=== PATIENT | male | born 1975 | race African-American/Black ===

== ENCOUNTER 2018-11-19 17:40 | Inpatient (IN) | payer SELFPAY ==
[~2018-11-19] VITALS: Ht 172.7 cm; Wt 146.3 kg
[2018-11-19 18:44] LABS: BASOPHILS % 0.6 % (0.0-2.0); HEMATOCRIT. 42.4 % (42.0-52.0); HEMOGLOBIN. 13.3 g/dL (14.0-18.0); LYMPHOCYTES % 11.4 % (20.0-50.0); MEAN PLATELET VOLUME 9.3 fl (7.4-10.4); MONOCYTES % 6.7 % (2.0-8.0); NEUTROPHILS % 78.3 % (40.0-76.0); PLATELET 207 x1000/uL (130-400); RED BLOOD CELL COUNT 4.93 mill/uL (4.7-6.1); RED CELL DISTRIBUTION WIDTH 14.3 % (11.6-14.6)
[2018-11-19 18:51] LABS: CHLORIDE 107 mEq/L (98-107)
[2018-11-19 18:53] LABS: PARTIAL THROMBOPLASTIN TIME 29.3 sec (23.4-31.0)
[2018-11-19 18:58] LABS: ETHANOL BLOOD < 10 mg/dL
[2018-11-19] MEDS ORDERED: IPRATROPIUM BROMIDE (0.02%) 0.5MG/2.5ML NEB HHN STA (19:53)
[2018-11-19] MEDS ORDERED: ALBUTEROL (0.083%) 2.5MG/3ML NEB HHN STA (19:53)
[2018-11-19] MEDS ORDERED: CLONIDINE 0.1MG TABLET PO ONE (20:00)
[2018-11-19] MEDS ORDERED: KETOROLAC 30MG/ML VIAL IV ONE (20:00)
[2018-11-19] MEDS ORDERED: HYDROCODONE/ACETAMINOPHEN 5/325MG TABLET PO ONE (20:00)
[2018-11-20] MEDS ORDERED: ACETAMINOPHEN 325MG TABLET PO PRN (01:00)
[2018-11-20] MEDS ORDERED: MAGNESIUM/ALUMINUM HYDROXIDE/SIMETHICONE 30ML UDC PO PRN (01:00)
[2018-11-20] MEDS ORDERED: ONDANSETRON HCL 4MG/2ML INJ IV PRN (01:00)
[2018-11-20] MEDS ORDERED: IPRATROPIUM/ALBUTEROL 0.5-3(2.5)MG/3ML NEB INH PRN (01:00)
[2018-11-20] MEDS ORDERED: CLONIDINE 0.1MG TABLET PO PRN (01:00)
[2018-11-20] MEDS ORDERED: HYDRALAZINE 20MG/ML VIAL IV PRN (01:00)
[2018-11-20] MEDS ORDERED: DIPHENHYDRAMINE 50MG/ML VIAL IV PRN (01:00)
[2018-11-20] MEDS ORDERED: HYDROCODONE/ACETAMINOPHEN 5/325MG TABLET PO PRN ×2 (01:00→14:45)
[2018-11-20] MEDS ORDERED: GUAIFENESIN 200MG/10ML SUGAR FREE UDC PO PRN (01:00)
[2018-11-20 01:53] VITALS: BP 144/84
[2018-11-20] MEDS: KETOROLAC 30MG/ML VIAL IV PRN ×2 (03:04→21:17)
[2018-11-20 04:00] VITALS: BP 193/108
[2018-11-20] MEDS: IPRATROPIUM/ALBUTEROL 0.5-3(2.5)MG/3ML NEB HHN SCH ×3 (04:51→19:54)
[2018-11-20] MEDS: IBUPROFEN 600MG TABLET PO PRN (05:16)
[2018-11-20] MEDS: SODIUM CHLORIDE 0.9% INJ 3ML FLUSH IVF SCH ×2 (05:16→21:19)
[2018-11-20] MEDS: HYDRALAZINE HCL 50MG TABLET PO SCH ×3 (05:16→21:18)
[2018-11-20] MEDS ORDERED: HYDRALAZINE HCL 50MG TABLET PO SCH (06:00)
[2018-11-20] MEDS ORDERED: FUROSEMIDE 40MG/4ML VIAL IVP SCH (09:00)
[2018-11-20] MEDS ORDERED: FAMOTIDINE 20MG/2ML VIAL IV SCH (09:00)
[2018-11-20] MEDS: METOLAZONE 5MG TABLET PO SCH (09:49)
[2018-11-20] MEDS: FUROSEMIDE 40MG/4ML VIAL IVP SCH ×2 (09:50→21:16)
[2018-11-20] MEDS: POTASSIUM CHLORIDE 20MEQ TABLET SR PO SCH (09:50)
[2018-11-20] MEDS: ENOXAPARIN 40MG/0.4ML SYR SUBCUT SCH ×2 (09:51→21:19)
[2018-11-20 12:00] VITALS: BP 167/85
[2018-11-20 16:00] VITALS: BP 147/80
[2018-11-20 20:00] VITALS: BP 166/95
[2018-11-20] MEDS: AMLODIPINE 5MG TABLET PO SCH (21:18)
[2018-11-20] MEDS: FAMOTIDINE 20MG TABLET PO SCH (21:18)
[2018-11-21] VITALS (7 sets, daily range): BP systolic 138–163; BP diastolic 66–98
[2018-11-21] MEDS: IPRATROPIUM/ALBUTEROL 0.5-3(2.5)MG/3ML NEB HHN SCH ×2 (04:52→13:35)
[2018-11-21] MEDS: HYDRALAZINE HCL 50MG TABLET PO SCH ×3 (05:07→21:09)
[2018-11-21] MEDS: SODIUM CHLORIDE 0.9% INJ 3ML FLUSH IVF SCH ×3 (05:08→21:09)
[2018-11-21 07:30] LABS: CHLORIDE 100 mEq/L (98-107)
[2018-11-21] MEDS: AMLODIPINE 5MG TABLET PO SCH ×2 (08:49→21:09)
[2018-11-21] MEDS: METOLAZONE 5MG TABLET PO SCH (08:49)
[2018-11-21] MEDS: POTASSIUM CHLORIDE 20MEQ TABLET SR PO SCH (08:49)
[2018-11-21] MEDS: ENOXAPARIN 40MG/0.4ML SYR SUBCUT SCH ×2 (08:50→21:10)
[2018-11-21] MEDS: FUROSEMIDE 40MG/4ML VIAL IVP SCH ×2 (08:50→21:08)
[2018-11-21] MEDS: IBUPROFEN 600MG TABLET PO PRN (15:09)
[2018-11-21] MEDS: FAMOTIDINE 20MG TABLET PO SCH (21:08)
[2018-11-21] MEDS: METOPROLOL TARTRATE 50MG TABLET PO SCH (21:27)
[2018-11-22] VITALS: BP 162/96
[2018-11-22 01:52] LABS: *AMPHETAMINES SCREEN URINE NEGATIVE (NEGATIVE); *BARBITURATES SCREEN URINE NEGATIVE (NEGATIVE); *BENZODIAZEPINES SCREEN URINE NEGATIVE (NEGATIVE); *COCAINE SCREEN URINE NEGATIVE (NEGATIVE); CANNABINOID URINE SCREEN NEGATIVE (NEGATIVE); METHADONE URINE SCREEN NEGATIVE (NEGATIVE); OPIATES URINE SCREEN NEGATIVE (NEGATIVE); PHENCYCLIDINE URINE SCREEN NEGATIVE (NEGATIVE)
[2018-11-22 04:20] VITALS: BP 117/49
[2018-11-22] MEDS: SODIUM CHLORIDE 0.9% INJ 3ML FLUSH IVF SCH ×2 (05:14→14:00)
[2018-11-22] MEDS: HYDRALAZINE HCL 50MG TABLET PO SCH ×2 (05:14→14:00)
[2018-11-22 06:14] LABS: CHLORIDE 95 mEq/L (98-107)
[2018-11-22 06:35] LABS: BASOPHILS % 0.5 % (0.0-2.0); EOSINOPHILS % 4.6 % (0.0-5.0); HEMATOCRIT. 46.6 % (42.0-52.0); LYMPHOCYTES % 11.6 % (20.0-50.0); MEAN CORPUSCULAR HEMOGLOBIN 28.1 pg (28.0-32.0); MEAN CORPUSCULAR VOLUME 86.9 fL (80.0-94.0); MEAN PLATELET VOLUME 9.6 fl (7.4-10.4); MONOCYTES % 9.2 % (2.0-8.0); NEUTROPHILS % 74.1 % (40.0-76.0); PLATELET 284 x1000/uL (130-400); RED BLOOD CELL COUNT 5.36 mill/uL (4.7-6.1); RED CELL DISTRIBUTION WIDTH 14.3 % (11.6-14.6)
[2018-11-22 08:00] VITALS: BP 136/73
[2018-11-22] MEDS: FUROSEMIDE 40MG/4ML VIAL IVP SCH (08:47)
[2018-11-22 08:56] VITALS: BP 101/47
[2018-11-22] MEDS: METOPROLOL TARTRATE 50MG TABLET PO SCH (09:36)
[2018-11-22] MEDS: AMLODIPINE 5MG TABLET PO SCH (09:36)
[2018-11-22] MEDS: POTASSIUM CHLORIDE 20MEQ TABLET SR PO SCH (09:37)
[2018-11-22] MEDS: ENOXAPARIN 40MG/0.4ML SYR SUBCUT SCH (09:37)
[2018-11-22 12:04] VITALS: BP 103/59
[2018-11-22 16:18] VITALS: BP 125/74
== END 2018-11-22 19:45 | disposition home or self-care (01) | DRG 194 ==
LOC: ER 17:40 → 6WST 22:35 → EDBEDREQ 22:39 → EDBEDREQTM 22:39 → CANRESERV 22:56 → ENRESERV 22:56
PROVIDERS: ADMIT Internal Medicine; ATTEND Internal Medicine
DX: I11.0 Hypertensive heart disease with heart failure (principal); E66.2 Morbid (severe) obesity with alveolar hypoventilation; I50.43 Acute on chronic combined systolic (congestive) and diastolic (congestive) heart failure; I47.1 Supraventricular tachycardia; Z60.2 Problems related to living alone; J45.909 Unspecified asthma, uncomplicated; S39.012A Strain of muscle, fascia and tendon of lower back, initial encounter; Z79.899 Other long term (current) drug therapy; Z68.42 Body mass index [BMI] 45.0-49.9, adult
CPT/HCPCS: 36415; 71045; 80048; 80305; 80320; 83735; 83880; 84484; 93005; 93306; 93970; 94640; 96374; 97161; 99285; J0360; J1650; J1885; J1940; J7611; J7620; G0480

== ENCOUNTER 2021-08-12 00:20 | Inpatient (IN) | payer MEDICAID ==
[~2021-08-12] VITALS: Ht 172.7 cm; Wt 131.1 kg
[~2021-08-12 00:20] MED LIST: ALBU6.7H9 ORI; AMLO10TA80 PO; HYDR100T26 MT; LOSA100T32 MT
[2021-08-12] MEDS ORDERED: NITROGLYCERIN 0.4MG TABLET SL SL PRN (03:15)
[2021-08-12] MEDS ORDERED: ASPIRIN 81MG TABLET PO ONE (03:15)
[2021-08-12] MEDS ORDERED: LABETALOL HCL VIAL 20 MG/4 ML VIAL IV ONE ×2 (03:15→04:45)
[2021-08-12 03:32] LABS: EOSINOPHILS % 2.5 % (0.0-5.0); HEMATOCRIT. 42.5 % (42.0-52.0); HEMOGLOBIN. 13.4 g/dL (14.0-18.0); LYMPHOCYTES % 13.1 % (20.0-50.0); MEAN CORPUSCULAR VOLUME 85.9 fL (80.0-94.0); MEAN PLATELET VOLUME 9.7 fl (7.4-10.4); MONOCYTES % 7.4 % (2.0-8.0); PLATELET 210 x1000/uL (130-400); RED BLOOD CELL COUNT 4.95 mill/uL (4.7-6.1); RED CELL DISTRIBUTION WIDTH 14.9 % (11.6-14.6)
[2021-08-12 03:38] LABS: CHLORIDE 103 mEq/L (98-107)
[2021-08-12 09:00] VITALS: BP 160/81
[2021-08-12] MEDS ORDERED: ONDANSETRON HCL 4MG/2ML INJ IV PRN (11:00)
[2021-08-12] MEDS ORDERED: ACETAMINOPHEN 325MG TABLET PO PRN (11:00)
[2021-08-12] MEDS: AMLODIPINE 10MG TABLET PO SCH (11:43)
[2021-08-12 12:00] VITALS: BP 159/97
[2021-08-12] MEDS ORDERED: HYDR100T26 MT (15:18)
[2021-08-12] MEDS ORDERED: AMLO10TA80 PO (15:18)
[2021-08-12] MEDS ORDERED: LOSA100T32 MT (15:18)
[2021-08-12] MEDS ORDERED: HYDRALAZINE HCL 100MG TABLET PO NR (15:30)
[2021-08-12 16:00] VITALS: BP 138/79
[2021-08-12 16:18] LABS: *AMPHETAMINES SCREEN URINE NEGATIVE (NEGATIVE); *BARBITURATES SCREEN URINE NEGATIVE (NEGATIVE); *BENZODIAZEPINES SCREEN URINE NEGATIVE (NEGATIVE); *COCAINE SCREEN URINE NEGATIVE (NEGATIVE); CANNABINOID URINE SCREEN PRESUMTIVE POSITIVE (NEGATIVE); METHADONE URINE SCREEN NEGATIVE (NEGATIVE); OPIATES URINE SCREEN NEGATIVE (NEGATIVE); PHENCYCLIDINE URINE SCREEN NEGATIVE (NEGATIVE)
[2021-08-12] MEDS: LOSARTAN POTASSIUM 100 MG TABLET PO SCH (16:26)
[2021-08-12] MEDS: METHYLPREDNISOLONE SOD SUCC 40 MG/ML VIAL IV SCH ×2 (16:26→23:23)
[2021-08-12] MEDS ORDERED: LEVOFLOXACIN 500MG PREMIX 100 ML IV SCH (18:00)
[2021-08-12 20:00] VITALS: BP 174/95
[2021-08-12] MEDS: IPRATROPIUM/ALBUTEROL 0.5-3(2.5)MG/3ML NEB HHN SCH (20:44)
[2021-08-12] MEDS ORDERED: FAMOTIDINE 20MG TABLET PO SCH (21:00)
[2021-08-12] MEDS ORDERED: CLONIDINE 0.2MG TABLET PO PRN (22:00)
[2021-08-13] VITALS: BP 167/94
[2021-08-13] MEDS: IPRATROPIUM/ALBUTEROL 0.5-3(2.5)MG/3ML NEB HHN SCH ×3 (02:09→13:38)
[2021-08-13 04:00] VITALS: BP 135/95
[2021-08-13 08:00] VITALS: BP 122/59
[2021-08-13] MEDS ORDERED: THIAMINE HCL 100MG TABLET PO SCH (09:00)
[2021-08-13] MEDS ORDERED: ASPIRIN 81MG TABLET PO SCH (09:00)
[2021-08-13] MEDS: METHYLPREDNISOLONE SOD SUCC 40 MG/ML VIAL IV SCH (09:16)
[2021-08-13] MEDS: LOSARTAN POTASSIUM 100 MG TABLET PO SCH (09:16)
[2021-08-13] MEDS: AMLODIPINE 10MG TABLET PO SCH (09:17)
[2021-08-13 12:00] VITALS: BP 160/69
[2021-08-13] MEDS ORDERED: P20 MT (12:51)
[2021-08-13] MEDS ORDERED: LEVO500T89 MT (12:51)
[2021-08-13] MEDS ORDERED: ALBU6.7H9 ORI (12:51)
[2021-08-13] MEDS ORDERED: HYDRALAZINE HCL 100MG TABLET PO SCH (14:00)
[2021-08-13 14:18] VITALS: BP 160/69
== END 2021-08-13 15:40 | disposition home or self-care (01) | DRG 199 ==
LOC: ER 00:20 → MICUSO 04:42 → 7WST 11:15
PROVIDERS: ADMIT Internal Medicine; ATTEND Internal Medicine
PROC: 5A09357 Assistance with Respiratory Ventilation, Less than 24 Consecutive Hours, Continuous Positive Airway Pressure (ICD-10-PCS; principal; 2021-08-12)
DX: I16.1 Hypertensive emergency (principal); J18.9 Pneumonia, unspecified organism; E66.9 Obesity, unspecified; J40 Bronchitis, not specified as acute or chronic; I25.10 Atherosclerotic heart disease of native coronary artery without angina pectoris; G47.33 Obstructive sleep apnea (adult) (pediatric); I10 Essential (primary) hypertension; Z91.19 Patient's noncompliance with other medical treatment and regimen; Z88.8 Allergy status to other drugs, medicaments and biological substances; Z79.899 Other long term (current) drug therapy; Z68.41 Body mass index [BMI] 40.0-44.9, adult; Z71.3 Dietary counseling and surveillance
CPT/HCPCS: 36415; 71045; 80053; 80305; 83880; 84484; 85025; 93005; 94640; 99285; J1956; J2920; J3490

== ENCOUNTER 2022-12-08 00:39 | Inpatient (IN) | payer MEDICAID ==
[~2022-12-08] VITALS: Ht 170.2 cm; Wt 159.7 kg
[~2022-12-08 00:39] MED LIST changes: +ALBU6.7H3 ORI; -ALBU6.7H9 ORI; +LEVO-65 MT; -LOSA100T32 MT; +LOSA100T33 MT; +P20 MT
[2022-12-08] MEDS ORDERED: IPRATROPIUM BROMIDE (0.02%) 0.5MG/2.5ML NEB HHN STA (01:25)
[2022-12-08] MEDS ORDERED: ALBUTEROL (0.083%) 2.5MG/3ML NEB HHN STA (01:25)
[2022-12-08] MEDS ORDERED: FUROSEMIDE 40MG/4ML VIAL IVP ONE (01:30)
[2022-12-08 01:36] LABS: BASOPHILS % 0.6 % (0.0-2.0); DIFFERENTIAL COMMENT 0; EOSINOPHILS % 3.2 % (0.0-5.0); HEMATOCRIT. 43.3 % (42.0-52.0); HEMOGLOBIN. 13.4 g/dL (14.0-18.0); LYMPHOCYTES % 12.8 % (20.0-50.0); MEAN CORPUSCULAR HEMOGLOBIN 27.1 pg (28.0-32.0); MEAN CORPUSCULAR VOLUME 87.5 fL (80.0-94.0); MEAN PLATELET VOLUME 9.7 fl (7.4-10.4); NEUTROPHILS % 76.4 % (40.0-76.0); PLATELET 206 x1000/uL (130-400); RED BLOOD CELL COUNT 4.95 mill/uL (4.7-6.1); RED CELL DISTRIBUTION WIDTH 15.3 % (11.6-14.6)
[2022-12-08 01:43] LABS: CHLORIDE 103 mEq/L (98-107); INDEX HEMOLYSI 1 (1-3); INDEX ICTERIC 1 (1-4); INDEX LIPEMIC 1 (1-3); POTASSIUM 3.7 mEq/L (3.5-5.1); SODIUM 139 mEq/L (136-145)
[2022-12-08] MEDS: ALBUTEROL (0.083%) 2.5MG/3ML NEB HHN NR ×2 (01:54→01:55)
[2022-12-08 01:55] LABS: ALANINE AMINOTRANSFERASE 34 IU/L (13-61); ALBUMIN 3.3 g/dL (3.4-5.0); ASPARTATE AMINOTRANSFERASE 17 IU/L (15-37); BILIRUBIN TOTAL 0.4 mg/dL (0.1-1.0); CALCIUM 8.5 mg/dL (8.5-10.1); CARBON DIOXIDE 35 mEq/L (21-32); CREATININE 1.2 mg/dL (0.6-1.3); GLUCOSE 95 mg/dL (70-105); NT PRO B-TYPE NATRIURETIC PEP 285 pg/mL (5-125); PROTEIN TOTAL 7.4 g/dL (6.0-8.3); TROPONIN I HIGH SENSITIVITY 50 ng/L (<78); UREA NITROGEN BLOOD 16 mg/dL (7-21)
[2022-12-08] MEDS: IPRATROPIUM BROMIDE (0.02%) 0.5MG/2.5ML NEB HHN NR (01:55)
[2022-12-08 01:56] VITALS: PULSE 85; RESP 20; O2SAT 97
[2022-12-08] MEDS ORDERED: FUROSEMIDE 40MG/4ML VIAL IVP NR (02:00)
[2022-12-08 05:42] LABS: TROPONIN I HIGH SENSITIVITY 45 ng/L (<78)
[2022-12-08 08:00] VITALS: BP 186/104; PULSE 22; PULSE 75; PULSE 81; RESP 22; TEMP 98
[2022-12-08] MEDS ORDERED: HYDRALAZINE HCL 100MG TABLET PO SCH (10:15)
[2022-12-08] MEDS: AMLODIPINE 10MG TABLET PO SCH (10:58)
[2022-12-08] MEDS ORDERED: METOLAZONE 5MG TABLET PO NR (11:00)
[2022-12-08] MEDS ORDERED: ONDANSETRON HCL 4MG/2ML INJ IV PRN (11:00)
[2022-12-08] MEDS ORDERED: ACETAMINOPHEN 325MG TABLET PO PRN (11:00)
[2022-12-08] MEDS: ENOXAPARIN 40MG/0.4ML SYR SUBCUT SCH (12:58)
[2022-12-08 14:30] LABS: BG BASE EXCESS 6.6 mmol/L (-2.0-2.0); BG CARBOXYHEMOGLOBIN 1.6 % (0.5-1.5); BG DEOXYHEMOGLOBIN 7.1 % (0.0-5.0); BG METHEMOGLOBIN 0.2 % (0.0-1.5); BG OXYGEN SATURATION 92.8 % (92.0-98.5); BG OXYHEMOGLOBIN 91.1 % (94.0-97.0); BG PCO2 53.2 mmHg (35.0-45.0); BG PO2 63.7 mmHg (75.0-100.0); BG TOTAL HEMOGLOBIN 15.3 g/dL (12.0-18.0); BG VENT MODE ROOM AIR
[2022-12-08 16:00] VITALS: BP 146/94; PULSE 84; RESP 18; TEMP 98
[2022-12-08 16:23] LABS: *AMPHETAMINES SCREEN URINE NEGATIVE (NEGATIVE); *BARBITURATES SCREEN URINE NEGATIVE (NEGATIVE); *BENZODIAZEPINES SCREEN URINE NEGATIVE (NEGATIVE); *COCAINE SCREEN URINE NEGATIVE (NEGATIVE); CANNABINOID URINE SCREEN PRESUMTIVE POSITIVE (NEGATIVE); ECSTASY MDMA SCREEN URINE NEGATIVE (NEGATIVE); METHADONE URINE SCREEN NEGATIVE (NEGATIVE); OPIATES URINE SCREEN NEGATIVE (NEGATIVE); PHENCYCLIDINE URINE SCREEN NEGATIVE (NEGATIVE)
[2022-12-08] MEDS: FUROSEMIDE 100MG/10ML VIAL IVP SCH (17:00)
[2022-12-08] MEDS: HYDRALAZINE HCL 100MG TABLET PO SCH (18:04)
[2022-12-08 20:00] VITALS: BP 152/63; PULSE 92; RESP 18; TEMP 98.5
[2022-12-09] VITALS: BP 168/84; PULSE 92; RESP 23; TEMP 98.7
[2022-12-09] MEDS: ENOXAPARIN 40MG/0.4ML SYR SUBCUT SCH ×2 (00:59→12:00)
[2022-12-09 04:00] VITALS: BP 160/80; PULSE 86; RESP 21; TEMP 98.6
[2022-12-09 06:50] VITALS: BP 161/89; PULSE 91; RESP 17; TEMP 98.8
[2022-12-09] MEDS ORDERED: CLONIDINE 0.1MG TABLET PO PRN (07:30)
[2022-12-09 07:31] LABS: CHLORIDE 94 mEq/L (98-107); INDEX HEMOLYSI 1 (1-3); INDEX ICTERIC 1 (1-4); INDEX LIPEMIC 1 (1-3); POTASSIUM 3.4 mEq/L (3.5-5.1); SODIUM 132 mEq/L (136-145)
[2022-12-09 07:43] LABS: CARBON DIOXIDE 34 mEq/L (21-32); GLUCOSE 121 mg/dL (70-105); UREA NITROGEN BLOOD 13 mg/dL (7-21)
[2022-12-09 08:00] VITALS: BP 152/94; PULSE 90; RESP 22; TEMP 99.1
[2022-12-09] MEDS: HYDRALAZINE HCL 100MG TABLET PO SCH ×2 (09:17→13:21)
[2022-12-09] MEDS: FUROSEMIDE 100MG/10ML VIAL IVP SCH (09:17)
[2022-12-09] MEDS: AMLODIPINE 10MG TABLET PO SCH (09:17)
[2022-12-09] MEDS ORDERED: POTASSIUM CHLORIDE 20MEQ TABLET SR PO SCH (09:45)
[2022-12-09] MEDS ORDERED: AMLO10TA80 PO (10:06)
[2022-12-09] MEDS ORDERED: LOSA100T33 MT (10:06)
[2022-12-09] MEDS ORDERED: HYDR100T26 PO (10:06)
[2022-12-09] MEDS ORDERED: POTA-205 MT (10:06)
[2022-12-09] MEDS ORDERED: FURO-151 MT (10:06)
[2022-12-09 11:10] VITALS: BP 152/94; PULSE 91; TEMP 99.1; O2SAT 96
[2022-12-09 12:00] VITALS: BP 158/92; PULSE 90; RESP 20; TEMP 98.3
[2022-12-09 13:23] LABS: HEPATITIS B SURFACE ANTIGEN NEGATIVE
[2022-12-09 13:52] LABS: HEPATITIS C VIR.AB 0.13 INDEXVAL (0.00-0.80)
[2022-12-10] MEDS ORDERED: METOLAZONE 2.5MG TABLET PO SCH (09:00)
== END 2022-12-09 14:10 | disposition home or self-care (01) | DRG 194 ==
LOC: ER 00:49 → 3WST 06:02
PROVIDERS: ADMIT Internal Medicine; ATTEND Internal Medicine
DX: I11.0 Hypertensive heart disease with heart failure (principal); J96.02 Acute respiratory failure with hypercapnia; I16.0 Hypertensive urgency; I45.10 Unspecified right bundle-branch block; J44.9 Chronic obstructive pulmonary disease, unspecified; E78.5 Hyperlipidemia, unspecified; E66.2 Morbid (severe) obesity with alveolar hypoventilation; E87.29 Other acidosis; Z91.199 Patient's noncompliance with other medical treatment and regimen due to unspecified reason; Z79.899 Other long term (current) drug therapy; Z87.891 Personal history of nicotine dependence; Z68.43 Body mass index [BMI] 50.0-59.9, adult; I50.33 Acute on chronic diastolic (congestive) heart failure
CPT/HCPCS: 36415; 36600; 71045; 80048; 80053; 80305; 82375; 82805; 83605; 83880; 84484; 85025; 85379; 86803; 87340; 87426; 93005; 93306; 94640; 99285; J1650; J1940